=== PATIENT | male | born 1965 | race African-American/Black ===

== ENCOUNTER 2018-09-07 09:47 | Emergency (ER) | payer OTHER ==
[2018-09-07 09:59] VITALS: BMI 27.4
[2018-09-07] MEDS ORDERED: ACETAMINOPHEN 1000 MG/100 ML VIAL (NON FORMULARY) IVPB ONE (10:48)
--- NOTE | 2018-09-07 11:01 | PDOC ---
*Physical Exam - Vital Signs Last Vital Signs Temp Pulse Resp BP Pulse Ox 98.3 F 76 16 160/103 H 99 09/07/18 09:56 09/07/18 09:56 09/07/18 09:56 09/07/18 09:56 09/07/18 09:56 Medical Decision Making - Medical Decision Making 09/07/18 11:01 Pt seen by the Advanced Practice Provider under my direct supervision Ancillary studies reviewed I agree with plan as outlined by the Advanced Practice Provider JEREMY Louise *DC/Admit/Observation/Transfer - Referrals Referrals: Homa Sanon MD [Primary Care Provider] - - Patient Instructions - Post Discharge Activity
[2018-09-07] MEDS ORDERED: ACETAMINOPHEN INJECTION 100 ML IVPB ONE (11:02)
--- NOTE | 2018-09-07 11:10 | PDOC ---
History of Present Illness - General Chief Complaint: Pain, Acute Stated Complaint: NECK PAIN Time Seen by Provider: 09/07/18 10:22 History Source: Patient, Significant Other Exam Limitations: No Limitations - History of Present Illness Initial Comments: 09/07/18 11:06 53 yo M w/ no sig PMHx comes in with c/o sudden onset of midneck pain while driving 3 days ago. Pain is now located to the bilateral sides of the neck , pain does not radiate anywhere, no numbness/tingling anywhere, no weakness, no pain in arms, no headache, no vision changes, no change in speech/behavior, no back pain, no CP, no SOB, no diaphoresis, no Fever/chills, no NVD, no change in appetite, no recent travel. is sick with a cold. Pt has never had any similar pain in the past. 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 NO back pain, now. He recalls lifting a toilet on sunday at work, but no immediate pain at time of strenuous activity. He also states that he started sleeping with a pillow a month ago because his neck would get stiff intermittently, but this feels different. Pt called his PMD this morning and was referred to the ED for an "xray". 09/07/18 11:10 Past History - Past Medical History Allergies/Adverse Reactions: Allergies Allergy/AdvReac Type Severity Reaction Status Date / Time amoxicillin trihydrate Allergy Verified 09/07/18 09:55 [From Augmentin] potassium clavulanate Allergy Verified 09/07/18 09:55 [From Augmentin] Home Medications: Ambulatory Orders Methocarbamol [Robaxin-750] 750 mg PO TID 3 Days #20 tablet 09/07/18 Naproxen [Naprosyn] 500 mg PO TID 3 Days #20 tablet 09/07/18 COPD: No - Immunization History Immunization Up to Date: Yes - Suicide/Smoking/Psychosocial Hx Smoking History: Never smoked Have you smoked in the past 12 months: No Hx Alcohol Use: No Drug/Substance Use Hx: No Substance Use Type: None Review of Systems - Review of Systems Able to Perform ROS?: Yes Constitutional: No: Chills, Fever, Malaise, Night Sweats HEENTM: No: Eye Pain, Recent change in vision, Throat Pain Respiratory: No: Cough, Shortness of Breath Cardiac (ROS): No: Chest Pain, Palpitations, Chest Tightness ABD/GI: No: Diarrhea, Nausea, Vomiting, Abdominal cramping : No: Dysuria, Hematuria Musculoskeletal: No: Back Pain Integumentary: No: Rash Neurological: No: Headache, Numbness, Paresthesia, Weakness, Unsteady Gait, Ataxia, Dizziness Psychiatric: No: Change in Appetite Endocrine: No: Unexplained Weight Loss *Physical Exam - Vital Signs Last Vital Signs Temp Pulse Resp BP Pulse Ox 98.3 F 76 16 160/103 H 99 09/07/18 09:56 09/07/18 09:56 09/07/18 09:56 09/07/18 09:56 09/07/18 09:56 - Physical Exam General Appearance: Yes: Nourished. No: Apparent Distress HEENT: positive: MILO, Normal ENT Inspection, Normal Voice. negative: Pale Conjunctivae, Scleral Icterus (R), Scleral Icterus (L) Neck: positive: Decreased range of motion, Rigidity, Other (No reproducible tenderness). negative: Tender, Supple, Tender lateral, Tender midline Respiratory/Chest: positive: Lungs Clear, Normal Breath Sounds. negative: Respiratory Distress, Accessory Muscle Use Cardiovascular: positive: Regular Rhythm, Regular Rate Comments:: 09/07/18 11:22 Equal radial pulses 09/07/18 11:23 Neuro exam : A+Ox3 (person, place, time), normal sensorium. Visual escalera: full to confrontation. Pupils: equal, round, and reactive to light. EOM: intact and smooth pursuit. No nystagmus. Sensation: V1, V2, and V3 normal b/l Facial strength: muscles of mastication, facial expression, shoulder shrug, and head turn normal. Hearing: grossly intact b/l Mouth: tongue protrudes midline and moves Left/Right equal b/l. Uvula rises symmetrically. Motor: UE and LE 5/5 diffusely. Sensation: light touch and pinprick WNL. Cerebellum: Qadcab-ulrn-yubwbs normal without dysmetria or intention tremor. Hcdf-lt-vqal wnl. No dysdiadodyskinesia. Gait: unassisted, steady, Romberg negative, No atalgia, difficulty in ambulation or ataxia. Gastrointestinal/Abdominal: positive: Normal Bowel Sounds, Soft. negative: Tender Musculoskeletal: positive: Normal Inspection. negative: CVA Tenderness, Decreased Range of Motion Extremity: positive: Normal Capillary Refill, Normal Inspection, Normal Range of Motion. negative: Tender, Pedal Edema Integumentary: positive: Normal Color, Dry. negative: Jaundice, Rash Moderate Sedation - Procedure Monitoring Vital Signs: Procedure Monitoring Vital Signs Temperature 98.3 F 09/07/18 09:56 Pulse Rate 76 09/07/18 09:56 Respiratory Rate 16 09/07/18 09:56 Blood Pressure 160/103 H 09/07/18 09:56 O2 Sat by Pulse Oximetry (%) 99 09/07/18 09:56 ED Treatment Course - LABORATORY CBC & Chemistry Diagram: 09/07/18 11:12 09/07/18 11:12 - RADIOLOGY Radiology Studies Ordered: Category Date Time Status BRAIN CTA [CT] Stat CT Scan 09/07/18 10:[address] WITHOUT CONTRAST [CT] Stat CT Scan 09/07/18 10:43 Ordered NECK CTA [CT] Stat CT Scan 09/07/18 10:43 Ordered Medical Decision Making - Medical Decision Making 09/07/18 11:24 53 yo M w/ atraumatic neck pain, non reproducible on exam. He says that his BP was 117/70 at his PMD's office 2 weeks ago he denies a h/o HTN. BP currently elevated in the setting of atraumatic neck pain not reproducible on exam. WIll line and lab, do an EKG, will do a CT head, CTA head and neck, and will consider MRI and Neuro consult. Tylenol IV ordered for pain 09/07/18 14:40 CT does not show dissection, just mild narrowing. WIll attempt valium, naprosyn and reassess 09/07/18 15:37 Pt ate, took flexeril, valium, naprosyn, will reassess shortly 09/07/18 17:19 Pt feels a lot better after meds, he is able to range the neck, no longer stiff. WIll discharge with PMD follow up copies of results given to patient. Will discharge with ibuprofen, robaxin PRN Return for worsening/concerning symptoms Pt verbalizes understanding and agrees with plan 09/07/18 17:24 *DC/Admit/Observation/Transfer Diagnosis at time of Disposition: Neck pain, bilateral - Discharge Dispostion Disposition: HOME Condition at time of disposition: Stable Decision to Admit order: No - Prescriptions Prescriptions: Methocarbamol [Robaxin-750] 750 mg PO TID 3 Days #20 tablet Naproxen [Naprosyn] 500 mg PO TID 3 Days #20 tablet - Referrals Referrals: Homa Sanon MD [Primary Care Provider] - - Patient Instructions Printed Discharge Instructions: DI for Neck Pain Additional Instructions: APply warm compresses, take warm showers, massage muscles of the neck and take the test results to your PMD with whom you should follow up in the next 1-2 days. Return to the ED for worsening/concerning symptoms - Post Discharge Activity
[2018-09-07 11:24] LABS: BASO % 0.4 % (0-2.0); EOS % 0.6 % (0-4.5); HEMATOCRIT 40.2 % (35.4-49); HEMOGLOBIN 13.9 GM/dL (11.7-16.9); LYMPH % 35.7 % (8-40); MCH 31.8 pg (25.7-33.7); MCHC 34.6 g/dl (32.0-35.9); MEAN PLT VOLUME 7.1 fl (7.5-11.1); MONO % 7.7 % (3.8-10.2); NEUT % 55.6 % (42.8-82.8); PLATELET COUNT 297 K/MM3 (134-434); RBC 4.37 M/mm3 (4.00-5.60); RDW 12.9 % (11.9-15.9); WHITE BLOOD COUNT 5.5 K/mm3 (4.0-10.0)
[2018-09-07 11:41] LABS: INR 1.22 (0.83-1.09); PROTHROMBIN TIME (PATIENT) 14.4 SEC (9.7-13.0)
[2018-09-07 12:00] LABS: ALBUMIN 3.5 g/dl (3.4-5.0); ALK PHOS 66 U/L (45-117); ANION GAP 6 MMOL/L (8-16); BILIRUBIN,TOTAL 0.5 mg/dL (0.2-1); BLOOD UREA NITROGEN 18 mg/dL (7-18); CHLORIDE 106 mmol/L (98-107); CO2 29 mmol/L (21-32); CREATININE 1.1 mg/dL (0.55-1.3); GLUCOSE,RANDOM 89 mg/dL (74-106); MAGNESIUM 2.2 mg/dL (1.8-2.4); POTASSIUM 4.5 mmol/L (3.5-5.1); SGOT/AST 18 U/L (15-37); SGPT/ALT 26 U/L (13-61); SODIUM 141 mmol/L (136-145); TOT PROT 7.7 g/dl (6.4-8.2)
[2018-09-07] MEDS ORDERED: CYCLOBENZAPRINE HCL 10 MG TABLET (FP) PO ONE (14:29)
[2018-09-07] MEDS ORDERED: CYCLOBENZAPRINE HCL 10 MG TABLET (FP) ONE (14:36)
[2018-09-07] MEDS ORDERED: NAPROXEN 500 MG TABLET (FP) PO ONE (14:38)
[2018-09-07] MEDS ORDERED: diazePAM 5 MG TABLET PO ONE (14:39)
[2018-09-07] MEDS ORDERED: diazePAM 5 MG TABLET ONE (14:47)
[2018-09-07] MEDS ORDERED: NAPROXEN 500 MG TABLET (FP) ONE (14:47)
[2018-09-07 15:25] VITALS: TEMP 97.9
[2018-09-07 17:36] VITALS: BP 130/100; PULSE 72
--- NOTE | 2018-09-08 08:42 | EKG ---
Test Reason : Blood Pressure : / mmHG Vent. Rate : 070 BPM Atrial Rate : 070 BPM P-R Int : 176 ms QRS Dur : 086 ms QT Int : 396 ms P-R-T Axes : 071 024 022 degrees QTc Int : 427 ms NORMAL SINUS RHYTHM POSSIBLE LEFT ATRIAL ENLARGEMENT BORDERLINE ECG NO PREVIOUS ECGS AVAILABLE Confirmed by FORTUNATO JACOBSEN, CARLOS ([id number]) on 09/08/2018 8:42:23 AM Referred By: Confirmed By:CARLOS BUCIO MD
== END 2018-09-07 17:36 | disposition home or self-care (01) ==
LOC: JER 09:47
DX: M54.2 Cervicalgia (principal); R03.0 Elevated blood-pressure reading, without diagnosis of hypertension
CPT/HCPCS: 36415; 70450-TC; 70496-TC; 70498-TC; 80053; 82550; 82553; 83735; 84484; 85025; 85610; 86850; 86900; 86901; 93005; 93010; 99284-25; J0131